=== PATIENT | female | born 1970 | race African-American/Black ===

== ENCOUNTER 2021-06-07 09:02 | Inpatient (IN) | payer OTHER ==
[2021-06-07 10:59] VITALS: BMI 17.1
[2021-06-07] MEDS ORDERED: BISMUTH SUBSALICYLATE 262 MG/15 ML BTL PO PRN (11:15)
[2021-06-07] MEDS ORDERED: MAGNESIUM HYDROX 2400MG/30ML ORAL SUSPENSION 30 ML CUP PO PRN (11:15)
[2021-06-07] MEDS ORDERED: MENTHOL/PHENOL 1 EACH UD MM PRN (11:15)
[2021-06-07] MEDS ORDERED: METHOCARBAMOL 500 MG TABLET PO PRN (11:15)
[2021-06-07] MEDS ORDERED: MAGNESIUM CITRATE 300 ML BOTTLE PO PRN (11:15)
[2021-06-07] MEDS ORDERED: ONDANSETRON *ODT* 4 MG TABLET SL PRN (11:15)
[2021-06-07] MEDS ORDERED: MAG HYDROX/AL HYDROX/SIMETH 30 ML UNIT-DOSE CUP PO PRN (11:15)
[2021-06-07] MEDS ORDERED: ACETAMINOPHEN 325 MG TABLET (FP) PO PRN ×2 (11:15)
[2021-06-07] MEDS ORDERED: IBUPROFEN 400 MG TABLET (FP) PO PRN (11:15)
[2021-06-07] MEDS ORDERED: NICOTINE POLACRILEX 2 MG GUM BUC PRN (11:15)
[2021-06-07] MEDS ORDERED: INSULIN (NOVOLOG) ASPART 100 UNITS/ML 10ML VIAL SQ ONE ×3 (11:21→13:45)
[2021-06-07] MEDS: hydrOXYzine PAMOATE 25 MG CAPSULE (FP) PO SCH ×3 (14:15→22:52)
[2021-06-07] MEDS: PRENATAL VITAMINS W/ FOLIC ACID TABLET (FP) PO SCH (14:15)
[2021-06-07] MEDS ORDERED: INSULIN SLIDING SCALE (NOVOLOG) 1 VIAL SQ ONE (16:32)
[2021-06-07] MEDS: INSULIN (NOVOLOG) ASPART 100 UNITS/ML 10ML VIAL SQ SCH (17:04)
[2021-06-07 18:53] VITALS: BP 91/65; PULSE 69; TEMP 96.6
[2021-06-07] MEDS ORDERED: THIAMINE HCL 100 MG TABLET (FP) PO SCH (22:00)
[2021-06-07] MEDS ORDERED: INSULIN (LEVEMIR) 100 UNITS/ML UNITS SQ SCH (22:00)
[2021-06-07] MEDS ORDERED: MELATONIN 5 MG TABLETS PO SCH (22:00)
[2021-06-08] MEDS: hydrOXYzine PAMOATE 25 MG CAPSULE (FP) PO SCH ×3 (06:11→14:48)
[2021-06-08] MEDS: INSULIN (NOVOLOG) ASPART 100 UNITS/ML 10ML VIAL SQ SCH ×2 (08:06→11:56)
[2021-06-08] MEDS: PRENATAL VITAMINS W/ FOLIC ACID TABLET (FP) PO SCH (11:23)
== END 2021-06-08 15:33 | disposition home or self-care (01) | DRG 773 ==
LOC: YASAS 09:02 → Y3N 12:29
PROVIDERS: ADMIT Allergy & Immunology; ATTEND Allergy & Immunology
PROC: HZ2ZZZZ Detoxification Services for Substance Abuse Treatment (ICD-10-PCS; principal; 2021-06-07)
DX: F11.23 Opioid dependence with withdrawal (principal); F14.20 Cocaine dependence, uncomplicated; F17.210 Nicotine dependence, cigarettes, uncomplicated; E10.9 Type 1 diabetes mellitus without complications; Z79.4 Long term (current) use of insulin
CPT/HCPCS: 81025; 82962; 93005; 93010; C9803; U0003; U0005